=== PATIENT | female | born 1990 | race Native Hawaiian/Other Pacific Islander ===

== ENCOUNTER 2016-07-19 09:46 | Emergency (ER) | payer MEDICAID ==
[2016-07-19] MEDS ORDERED: Sodium Chloride 0.9% 1,000 ML IV STA (10:08)
[2016-07-19] MEDS ORDERED: Sodium Chloride 0.9% 250 ML IV ONE (10:19)
--- NOTE | 2016-07-19 10:32 | C.PDOC ---
History Of Present Illness 25 y/o female presents to the ED with complains of sudden abdominal pain while she was working out. Pt states pain was sudden to LLQ with associated vomiting. Pt called EMS and vomited again en route to ED. Pain initially 10/10, has since subsided to 5/10. Pt denies chest pain, diarrhea, SOB, fever or any other complaints. Chief Complaint (Nursing): Abdominal Pain History Per: Patient History/Exam Limitations: no limitations Onset/Duration Of Symptoms: Mins Current Symptoms Are (Timing): Better Severity: Moderate Pain Scale Rating Of: 5 Location Of Pain/Discomfort: LLQ Radiation Of Pain To:: None Quality Of Discomfort: "Pain" Associated Symptoms: Vomiting. denies: Fever, Diarrhea, Chest Pain Exacerbating Factors: None Recent travel outside of the [place]: No Past Medical History Reviewed: Historical Data, Nursing Documentation, Vital Signs Vital Signs: Last Vital Signs Temp 98.5 F 07/19/16 15:13 Pulse 78 07/19/16 15:13 Resp 18 07/19/16 15:13 BP 105/65 07/19/16 15:13 Pulse Ox 99 07/19/16 15:13 Family History: States: Unknown Family Hx - Social History Hx Alcohol Use: No Hx Substance Use: No - Immunization History Hx Tetanus Toxoid Vaccination: No Hx Influenza Vaccination: No Review Of Systems Except As Marked, All Systems Reviewed And Found Negative. Constitutional: Negative for: Fever Cardiovascular: Negative for: Chest Pain Gastrointestinal: Positive for: Vomiting, Abdominal Pain. Negative for: Diarrhea Physical Exam - Physical Exam Appears: Non-toxic, Other (anxious) Skin: Warm, Dry, No Rash Head: Atraumatic, Normacephalic Neck: Normal ROM, Supple Chest: Symmetrical Cardiovascular: Rhythm Regular, No Murmur Respiratory: Normal Breath Sounds, No Rales, No Rhonchi, No Wheezing Gastrointestinal/Abdominal: Soft, Tenderness (LLQ), No Guarding, No Rebound Extremity: Bilateral: Atraumatic Neurological/Psych: Oriented x3, Normal Speech ED Course And Treatment - Laboratory Results Result Diagrams: 07/19/16 10:35 07/19/16 10:35 - CT Scan/US Pelvis US Other Rad Studies (CT/US): Read By Radiologist, Radiology Report Reviewed CT/US Interpretation: Accession No. : [id number]. Patient Name / ID : CARO FENTON / [id number]. Exam Date : 07/19/2016 16:49:58 ( Approved ). Study Comment : Sex / Age : F / 25Y. Creator : Shyanne Clinton MD. Dictator : Shyanne Clinton MD. Rheumatologist : Shore Worker : Shyanne Clinton MD. Approver2 : Report Date : 07/19/2016 17:36:09. My Comment : . HISTORY: low abdominal pain, ovarian cyst, r/o torsion. COMPARISON: CT of the abdomen and pelvis with contrast performed the same day. TECHNIQUE: A real-time transabdominal pelvic ultrasound was performed. In addition, a transvaginal pelvic ultrasound was necessary to better depict pelvic anatomy. FINDINGS: UTERUS: Measures 8.2 x 4.5 x 5.1 cm. ENDOMETRIUM: Measures 1 cm in diameter. IUD appears within the endometrial cavity, somewhat low lying. CERVIX: Cervix length measures approximately 2.9 cm. RIGHT OVARY: Measures 4.3 x 3.0 x 4.5 cm. Blood flow is demonstrated. 3.2 x 1.9 x 3.0 cm cyst. 3.2 cm right ovarian cyst. LEFT OVARY: Measures 3.3 x 1.6 x 2.2 cm. Blood flow is demonstrated. FREE FLUID: Small pelvic free fluid. OTHER FINDINGS: None. IMPRESSION: IUD appears within the endometrial cavity, somewhat low lying. 3.2 cm right ovarian cyst. Small pelvic free fluid. CT abd/pelvis Other Rad Studies (CT/US): Read By Radiologist, Radiology Report Reviewed CT/US Interpretation: Accession No. : [id number]. Patient Name / ID : CARO FENTON / [id number]. Exam Date : 07/19/2016 15:01:12 ( Approved ). Study Comment : Sex / Age : F / 25Y. Creator : Shyanne Clinton MD. Dictator : Shyanne Clinton MD. Rheumatologist : Shore Worker : Shyanne Clinton MD. Approver2 : Report Date : 07/19/2016 15:23:52. My Comment : . PROCEDURE: CT Abdomen and Pelvis with oral and IV contrast. HISTORY: LLQ pain. COMPARISON: None available. TECHNIQUE: Contiguous axial images of the abdomen and pelvis. Oral and IV contrast was administered. Coronal and Sagittal reformats generated and reviewed. This CT exam was performed using 1 or more of the falling dose reduction techniques: Automated exposure control, adjustment of the MAA and/or kV according to patient size, and/or use of iterative reconstruction technique. Contrast dose: 100 mL Visipaque. Radiation dose: Total exam DLP = 287.94 mGy-cm. FINDINGS: LOWER THORAX: No visible consolidation, pleural effusion, or pneumothorax. LIVER: Unremarkable. GALLBLADDER AND BILE DUCTS: Unremarkable. PANCREAS: Unremarkable. SPLEEN: Unremarkable. ADRENALS: Unremarkable. KIDNEYS AND URETERS: The kidneys enhance symmetrically. No hydronephrosis or obstructing renal calculus. BLADDER: The urinary bladder appears unremarkable. REPRODUCTIVE: Uterus is present. IUD. 1.9 cm probable right ovarian cyst. APPENDIX: No secondary signs of acute appendicitis. BOWEL: The stomach is nondistended. The bowel loops appear within normal limits of caliber without evidence of intestinal obstruction. PERITONEUM: No significant free fluid. No definite free air. LYMPH NODES: No bulky lymphadenopathy identified. VASCULATURE: No aortic aneurysm. BONES: No acute osseous abnormality is detected. OTHER FINDINGS: None. IMPRESSION: 1.9 cm probable right ovarian cyst. Pelvic ultrasound suggested for further evaluation. Progress Note: Plan: Labs, UA, IV fluids, zofran. UA is consistant with UTI. Macrobid po was ordered. Patient is resting comfortably, abdomen remains soft, and patient is tolerating PO. Patient feels comfortable going home. Patient will be discharged home. Disposition - Disposition Referrals: Shaik Harden MD [Staff Provider] - Disposition: HOME/ ROUTINE Disposition Time: 17:59 Condition: STABLE Additional Instructions: Follow up with your PMD and OBGYN within 1-2 days. Return to ED immediately if feel worse. Prescriptions: Nitrofurantoin Macrocrystals [Macrobid] 1 cap PO BID #14 cap Ibuprofen [Motrin Tab] 400 mg PO Q8 #30 tab Instructions: Urinary Tract Infection in Women (ED), Ovarian Cyst (ED), Abdominal Pain (ED) - Clinical Impression Clinical Impression: Abdominal pain, UTI (urinary tract infection), Ovarian cyst - PA / ACCOUNTS PAYABLE TECHNICIAN / Resident Statement MD/DO has reviewed & agrees with the documentation as recorded. - Scribe Statement The provider has reviewed the documentation as recorded by the Scribaliyah Patterson All medical record entries made by the Scribaliyah were at my direction and personally dictated by me. I have reviewed the chart and agree that the record accurately reflects my personal performance of the history, physical exam, medical decision making, and the department course for this patient. I have also personally directed, reviewed, and agree with the discharge instructions and disposition.
[2016-07-19 10:44] LABS: BASO # 0.1 K/uL (0.0-0.2); BASO % 0.4 % (0.0-2.0); EOS # 0.1 K/uL (0.0-0.7); EOS % 0.5 % (0.0-4.0); HEMATOCRIT 40.3 % (34.0-47.0); LYMPH # 1.4 K/uL (1.0-4.3); LYMPH % 11.9 % (20.0-40.0); MEAN CELL VOLUME 85.2 fL (81.0-99.0); MEAN CORPUSCULAR HEMOGLOBIN 28.4 pg (27.0-31.0); MEAN CORPUSCULAR HGB CONC 33.3 g/dL (33.0-37.0); MEAN PLATELET VOLUME 7.9 fL (7.2-11.7); MONO # 0.7 K/uL (0.0-0.8); RED CELL DISTRIBUTION WIDTH 13.3 % (11.5-14.5); WHITE BLOOD COUNT 11.8 K/uL (4.8-10.8)
[2016-07-19 10:53] LABS: CHLORIDE 98 mmol/L (98-107); POTASSIUM 3.7 mmol/L (3.6-5.2); SODIUM 138 mmol/L (132-148)
[2016-07-19 10:55] LABS: GFR AFRICAN-AMERICAN > 60
[2016-07-19 10:56] LABS: ALB/GLOB RATIO 1.5 (1.0-2.1); ALKALINE PHOSPHATASE 47 U/L (38-126); ALT/SGPT 17 U/L (9-52); AST/SGOT 31 U/L (14-36); BILIRUBIN,TOTAL 0.4 mg/dL (0.2-1.3); BLOOD UREA NITROGEN 10 mg/dL (7-17); CALCIUM 8.5 mg/dl (8.6-10.4); CARBON DIOXIDE 25 mmol/L (22-30); GLUCOSE,RANDOM 96 mg/dL (65-105)
[2016-07-19 11:04] LABS: RBC URINE 1 /hpf (0-3); URINE BACTERIA RARE (<OCC); URINE BILIRUBIN NEGATIVE (NEGATIVE); URINE BLOOD NEGATIVE (NEGATIVE); URINE COLOR Yellow (YELLOW); URINE GLUCOSE (UA) NORMAL (Normal); URINE KETONE NEGATIVE (NEGATIVE); URINE LEUKOCYTE ESTERASE 2+ Leu/uL (Negative); URINE PROTEIN NEGATIVE (NEGATIVE); URINE UROBILINOGEN NORMAL mg/dL (0.2-1.0); WBC URINE 21 /hpf (0-5)
[2016-07-19 12:18] VITALS: RESP 18; TEMP 98.5
[2016-07-19] MEDS ORDERED: Iohexol 240 (50 ml) PO STA (12:23)
[2016-07-19] MEDS ORDERED: Iohexol 240 (50 ml) ONE (12:50)
[2016-07-19] MEDS ORDERED: Iodixanol 320 MG/ML 100 ML BOTTLE IV ONE (14:54)
--- NOTE | 2016-07-19 15:25 | CT ---
PROCEDURE: CT Abdomen and Pelvis with oral and IV contrast. HISTORY: LLQ pain COMPARISON: None available TECHNIQUE: Contiguous axial images of the abdomen and pelvis. Oral and IV contrast was administered. Coronal and Sagittal reformats generated and reviewed. This CT exam was performed using 1 or more of the falling dose reduction techniques: Automated exposure control, adjustment of the MAA and/or kV according to patient size, and/or use of iterative reconstruction technique Contrast dose: 100 mL Visipaque Radiation dose: Total exam DLP = 287.94 mGy-cm. FINDINGS: LOWER THORAX: No visible consolidation, pleural effusion, or pneumothorax. LIVER: Unremarkable. GALLBLADDER AND BILE DUCTS: Unremarkable. PANCREAS: Unremarkable. SPLEEN: Unremarkable. ADRENALS: Unremarkable. KIDNEYS AND URETERS: The kidneys enhance symmetrically. No hydronephrosis or obstructing renal calculus. BLADDER: The urinary bladder appears unremarkable. REPRODUCTIVE: Uterus is present. IUD. 1.9 cm probable right ovarian cyst. APPENDIX: No secondary signs of acute appendicitis. BOWEL: The stomach is nondistended. The bowel loops appear within normal limits of caliber without evidence of intestinal obstruction. PERITONEUM: No significant free fluid. No definite free air. LYMPH NODES: No bulky lymphadenopathy identified. VASCULATURE: No aortic aneurysm. BONES: No acute osseous abnormality is detected. OTHER FINDINGS: None. IMPRESSION: 1.9 cm probable right ovarian cyst. Pelvic ultrasound suggested for further evaluation.
--- NOTE | 2016-07-19 17:38 | US ---
HISTORY: low abdominal pain, ovarian cyst, r/o torsion COMPARISON: CT of the abdomen and pelvis with contrast performed the same day. TECHNIQUE: A real-time transabdominal pelvic ultrasound was performed. In addition, a transvaginal pelvic ultrasound was necessary to better depict pelvic anatomy. FINDINGS: UTERUS: Measures 8.2 x 4.5 x 5.1 cm. ENDOMETRIUM: Measures 1 cm in diameter. IUD appears within the endometrial cavity, somewhat low lying. CERVIX: Cervix length measures approximately 2.9 cm. RIGHT OVARY: Measures 4.3 x 3.0 x 4.5 cm. Blood flow is demonstrated. 3.2 x 1.9 x 3.0 cm cyst. 3.2 cm right ovarian cyst. LEFT OVARY: Measures 3.3 x 1.6 x 2.2 cm. Blood flow is demonstrated. FREE FLUID: Small pelvic free fluid. OTHER FINDINGS: None. IMPRESSION: IUD appears within the endometrial cavity, somewhat low lying. 3.2 cm right ovarian cyst. Small pelvic free fluid.
[2016-07-19 18:25] VITALS: BP 99/57; PULSE 97; O2SAT 100
== END 2016-07-19 18:25 | disposition home or self-care (01) ==
LOC: C.ER 09:46
DX: N39.0 Urinary tract infection, site not specified (principal); N83.201 Unspecified ovarian cyst, right side
CPT/HCPCS: 74177; 76830; 76856; 80053; 81001; 83690; 84703; 85025; 96374; 99285; J2405; J7040; Q9966; Q9967